=== PATIENT | male | born 1965 | race Two or more races ===

== ENCOUNTER 2020-04-11 09:12 | Emergency (ER) | payer SELFPAY ==
[2020-04-11] MEDS ORDERED: CLINDAMYCIN 900 MG/D5W RTU 900 MG/50 ML RTUPB IV ONE (11:45)
[2020-04-11] MEDS ORDERED: NORMAL SALINE 1000 ML 1,000 ML IV ONE (11:49)
[2020-04-11 12:35] LABS: ABSOLUTE BASOPHILS # (AUTO) 0.1 10^3/uL (0.0-0.2); ABSOLUTE EOSINOPHILS # (AUTO) 0.4 10^3/uL (0.0-0.6); ABSOLUTE LYMPHOCYTES (AUTO) 1.8 10^3/uL (0.5-4.7); ABSOLUTE MONOCYTES (AUTO) 0.5 10^3/uL (0.1-1.4); ABSOLUTE NEUT (AUTO) 7.3 10^3/uL (1.7-8.2); BASOPHILS % (AUTO) 0.6 % (0-2); EOSINOPHILS % (AUTO) 4.2 % (0-6); HEMOGLOBIN 13.8 g/dL (13.5-17.0); LYMPHOCYTES % (AUTO) 18.1 % (13-45); MEAN CORPUSCULAR HEMOGLOBIN 31.5 pg (27.0-33.4); MEAN CORPUSCULAR HGB CONC 34.5 g/dL (32.0-36.0); MEAN CORPUSCULAR VOLUME 91 fl (80-97); MONOCYTES % (AUTO) 5.4 % (3-13); PLATELET COUNT 346 10^3/uL (150-450); RED BLOOD COUNT 4.39 10^6/uL (4.35-5.55); RED CELL DISTRIBUTION WIDTH 12.7 % (11.5-14.0); SEGMENTED NEUTROPHILS % (AUTO) 71.7 % (42-78); TOTAL CELLS COUNTED % (AUTO) 100 %; WHITE BLOOD COUNT 10.2 10^3/uL (4.0-10.5)
--- NOTE | 2020-04-11 12:40 | ER Document Report ---
Entered by FILIPPO PERRY SCRIBE 04/11/20 1145 Acting as scribe for:DAHIANA PENA MD ED Extremity Problem, Lower - General Chief Complaint: Wound Infection Stated Complaint: LEFT KNEE PAIN/OPEN SORE Time Seen by Provider: 04/11/20 11:26 Mode of Arrival: Ambulatory Information source: Patient Notes: This 55 year old Welsh speaking male patient presents to the emergency department today with complaints of an abscess to the left knee. Patient states that he was bitten or stung by an unknown insect 2 days ago, the area began to swell and sounds like it came to a head and began draining pus. The area has remained red and painful but it is not actively draining. - Related Data Allergies/Adverse Reactions: No Known Allergies Allergy (Unverified 04/11/20 12:20) Past Medical History - General Information source: Patient - Social History Smoking Status: Unknown if Ever Smoked Cigarette use (# per day): No Frequency of alcohol use: None Drug Abuse: None Lives with: Family Family History: Reviewed & Not Pertinent Patient has homicidal ideation: No - Medical History Medical History: Negative Surgical Hx: Negative Review of Systems - Review of Systems Constitutional: No symptoms reported EENT: No symptoms reported Cardiovascular: No symptoms reported Respiratory: No symptoms reported Gastrointestinal: No symptoms reported Genitourinary: No symptoms reported Male Genitourinary: No symptoms reported Musculoskeletal: No symptoms reported Skin: See HPI, Change in color, Lesions - left knee Hematologic/Lymphatic: No symptoms reported Neurological/Psychological: No symptoms reported -: Yes All other systems reviewed and negative Physical Exam - Vital signs Vitals: Temp Pulse Resp BP Pulse Ox 98.4 F 73 16 154/79 H 99 04/11/20 09:17 04/11/20 09:17 04/11/20 09:17 04/11/20 09:17 04/11/20 09:17 - Notes Notes: Physical Exam: General: Alert, appears well. HEENT: Normocephalic. Atraumatic. PERRL. Extraocular movements intact. Oropharynx clear. Neck: Supple. Non-tender. Respiratory: No respiratory distress. Clear and equal breath sounds bilaterally. Cardiovascular: Regular rate and rhythm. Abdominal: Normal Inspection. Non-tender. No distension. Normal Bowel Sounds. Back: No gross abnormalities. Extremities: Moves all four extremities. Upper extremities: Normal inspection. Normal ROM. Lower extremities: The left anterior lateral knee area is swollen, erythema, skin is blistering away from a central necrotic area. The entire cellulitic region is very tender to palpate. Palpation on the wound causes liquid to flow out of one of the necrotic openings. Neurological: Normal cognition. AAOx4. Normal speech. Psychological: Normal affect. Normal Mood. Skin: Warm. Dry. Normal color. Course - Re-evaluation Re-evalutation: 04/11/20 18:04 PROCEDURE: The right anterolateral knee region was prepped with Shur-Clens. The abscess area was anesthetized with 12 mL of 1% lidocaine local. The primary wound was incised with a #11 scalpel. There was a communicating wound about 1 cm proximal to the main wound. The abscess was probed with a mosquito forceps. It travels in a lateral direction. It does not progress toward the patella, the prepatellar bursa, or the knee joint. The bridging tissue between the incised area and the other opening split open during debridement and irrigating the wound. Necrotic tissue within the wound was debrided. The blistering skin around the wound was peeled away. The wound was irrigated with at least 100 mL of normal saline. Wound was then packed with 1/4 inch iodoform gauze and a sterile dressing was applied. I got Dr. Eugene to come look at the patient's wound before packing it as he would be here tomorrow and can see the patient in follow-up. 04/11/20 18:08 The knee immobilizer was placed by the PCT, it fits well and prevents the patient from bending his knee. - Vital Signs Vital signs: Temp Pulse Resp BP Pulse Ox 98.4 F 63 18 114/68 100 04/11/20 16:12 04/11/20 16:12 04/11/20 16:12 04/11/20 16:12 04/11/20 16:12 - Laboratory Result Diagrams: 04/11/20 12:20 04/11/20 12:20 - Diagnostic Test Radiology reviewed: Reports reviewed - Contrasted CT scan of the left knee shows stranding of the soft tissues without involvement of the knee joint or with discrete drainable collections. Discharge - Discharge Clinical Impression: Abscess of knee, left Condition: Stable Disposition: HOME, SELF-CARE Additional Instructions: Abscess You have an abscess (boil). This a pus-forming infection, usually due to staph. Some boils may be left to drain on their own, but most require lancing. From the time the tender lump first appears, it may be three or four days before the abscess is ready to gunner. Local heat and rest help at this stage of treatment. An antibiotic may prevent spread of the infection. Once the abscess is opened, packing may be placed into it. This is done so pus is not sealed inside by premature closure of the cavity. The packing will be removed at your follow-up visit or you may be advised to remove it yourself at home. Sometimes this packing must be replaced a few times during healing. The wound will heal with surprisingly little scar. Depending on the size and location of an abscess, healing can take one to four weeks. You may shower and wash the area around the incision site two or three times a day. Antibiotics may be prescribed, but are usually not necessary after an abscess has been drained. If you develop fever, chilling, worsening pain, or increasing swelling in the area, call the doctor or return immediately. Use the knee immobilizer to prevent your knee from bending. Elevate your leg all the time. Take the medications as prescribed. Return to the emergency room tomorrow before noon to see Dr. Eugene to recheck your wound. RETURN TO THE EMERGENCY ROOM IF ANY NEW OR WORSENING SYMPTOMS. Prescriptions: Doxycycline Hyclate 100 mg PO BID #10 tab Oxycodone HCl/Acetaminophen [Percocet 5-325 mg Tablet] 1 tab PO ASDIR PRN #12 tablet PRN Reason: I personally performed the services described in the documentation, reviewed and edited the documentation which was dictated to the scribe in my presence, and it accurately records my words and actions.
[2020-04-11 12:57] LABS: ALKALINE PHOSPHATASE 119 U/L (38-126); ANION GAP 11 (5-19); ASPARTATE AMINO TRANSFERASE 30 U/L (17-59); BILIRUBIN,DIRECT 0.4 mg/dL (0.0-0.4); BILIRUBIN,TOTAL 0.5 mg/dL (0.2-1.3); BLOOD UREA NITROGEN 16 mg/dL (7-20); CALCIUM 9.4 mg/dL (8.4-10.2); CARBON DIOXIDE 29 mmol/L (22-30); CHLORIDE 101 mmol/L (98-107); GLUCOSE 100 mg/dL (75-110); POTASSIUM 4.7 mmol/L (3.6-5.0); TOTAL PROTEIN 7.4 g/dL (6.3-8.2)
--- NOTE | 2020-04-11 13:54 | RADIOLOGY REPORT (SQ) ---
EXAM DESCRIPTION: CT LEFT LOWER EXTREMITY WITH IMAGES COMPLETED DATE/TIME: 04/11/2020 12:29 pm REASON FOR STUDY: knee abscess COMPARISON: None. TECHNIQUE: Enhanced axial CT images of the left knee. CONTRAST TYPE AND DOSE: 50 mL Omnipaque 350 RENAL FUNCTION: GFR > 60. LIMITATIONS: None. FINDINGS: Bones: There is no acute fracture or cortical disruption. Moderate osteophytes at the me dial compartment. Mild osteophytes at the lateral compartment and patellofemoral joint space. No ly tic or blastic bone lesion. Soft tissues: There is no knee joint effusion. Diffuse subcutaneous edema overlying the patella and quadriceps tendon consistent with prepatellar bursitis. Other: None. IMPRESSION: Prepatellar bursitis. No focal drainable abscess. TECHNICAL DOCUMENTATION: JOB ID: [id number] [employer]- All Rights Reserved Reading location - IP/workstation name: [email or web address]
[2020-04-11] MEDS ORDERED: LIDOCAINE 1% INJ-PF (10 MG/ML) 30 ML SDV INJ ONE (14:01)
[2020-04-11] MEDS ORDERED: ONDANSETRON HCL INJ/PF 4 MG/2 ML SDV IV ONE (14:02)
[2020-04-11] MEDS ORDERED: MORPHINE SULFATE 10 MG/ML INJ IV ONE (14:02)
[2020-04-11 16:13] VITALS: BP 114/68
== END 2020-04-11 16:31 | disposition home or self-care (01) ==
LOC: ER 09:12
DX: L02.416 Cutaneous abscess of left lower limb (principal); M70.42 Prepatellar bursitis, left knee
CPT/HCPCS: 99285; 96361; 96375; 96365; 36415; 87040; 87070; 87205; 85025; 87075; 87077; 80053; 87186; 73701; 10060; J3490 ×2; J2270; J2405; J7030

== ENCOUNTER 2020-04-12 11:19 | Emergency (ER) | payer SELFPAY ==
--- NOTE | 2020-04-12 11:35 | ER Document Report ---
ED Medical Screen (RME) - General Chief Complaint: Abscess Recheck Stated Complaint: RECHECK/KNEE ABSCESS Time Seen by Provider: 04/12/20 11:32 Mode of Arrival: Ambulatory Information source: Patient Notes: 55-year-old male presented to ED for wound recheck. He was told by Dr. Eugene to please come back in time for him to recheck him. He was told he needed to be back in the emergency room before noon. He is alert oriented he states there is no change in his wound. He is able to walk with some limp. I have notified the charge nurse that the man is in the waiting room waiting to be rechecked by Dr. Eugene I have greeted and performed a rapid initial assessment of this patient. A comprehensive ED assessment and evaluation of the patient, analysis of test results and completion of medical decision making process will be conducted by an additional ED providers. - Related Data Allergies/Adverse Reactions: No Known Allergies Allergy (Unverified 04/11/20 12:20) Physical Exam - Vital signs Vitals: Temp Pulse Resp BP Pulse Ox 98.3 F 61 18 154/77 H 99 04/12/20 11:24 04/12/20 11:24 04/12/20 11:24 04/12/20 11:24 04/12/20 11:24 Course - Vital Signs Vital signs: Temp Pulse Resp BP Pulse Ox 98.3 F 61 18 154/77 H 99 04/12/20 11:24 04/12/20 11:24 04/12/20 11:24 04/12/20 11:24 04/12/20 11:24
[2020-04-12 12:19] VITALS: BP 154/94
== END 2020-04-12 12:19 | disposition home or self-care (01) ==
LOC: ER 11:19
DX: L02.416 Cutaneous abscess of left lower limb (principal)
CPT/HCPCS: 99281

== ENCOUNTER 2020-04-13 09:20 | Emergency (ER) | payer SELFPAY ==
--- NOTE | 2020-04-13 11:27 | ER Document Report ---
Entered by DENVER ZIMMERMAN SCRIBE 04/13/20 1009 Acting as scribe for:BART ESCALANTE MD ED Suture/Wound Recheck - General Chief Complaint: Wound Recheck Stated Complaint: KNEE PAIN/SORE Mode of Arrival: Ambulatory Information source: Patient Notes: This 55 year old male patient presents to the ED today for packing removal of his left knee abscess that he developed last week. Patient was initially seen here on 04/11 and underwent an I&D which was packed; he returned here on 04/12 for wound recheck which was clean, dry and intact and is now here to remove the packing. Patient denies any pain at this time. - Related Data Allergies/Adverse Reactions: No Known Allergies Allergy (Verified 04/13/20 09:37) Past Medical History - General Information source: Patient - Social History Smoking Status: Unknown if Ever Smoked Smoking Education Provided: No Lives with: Family Family History: Reviewed & Not Pertinent - Medical History Medical History: Negative Surgical Hx: Negative Review of Systems - Review of Systems Constitutional: See HPI EENT: No symptoms reported Cardiovascular: No symptoms reported Respiratory: No symptoms reported Gastrointestinal: No symptoms reported Genitourinary: No symptoms reported Male Genitourinary: No symptoms reported Musculoskeletal: No symptoms reported Skin: See HPI Hematologic/Lymphatic: No symptoms reported Neurological/Psychological: No symptoms reported -: Yes All other systems reviewed and negative Physical Exam - Vital signs Vitals: Temp Pulse Resp BP Pulse Ox 98.2 F 67 16 157/80 H 98 04/13/20 09:26 04/13/20 09:26 04/13/20 09:26 04/13/20 09:26 04/13/20 09:26 Interpretation: Normal - General General appearance: Alert In distress: None - HEENT Head: Normocephalic, Atraumatic Eyes: Normal Pupils: PERRL - Respiratory Respiratory status: No respiratory distress Chest status: Nontender Breath sounds: Normal Chest palpation: Normal - Cardiovascular Rhythm: Regular Heart sounds: Normal auscultation Murmur: No - Abdominal Inspection: Normal Distension: No distension Bowel sounds: Normal Tenderness: Nontender - Abdomen soft Organomegaly: No organomegaly - Back Back: Normal, Nontender - Extremities General upper extremity: Normal inspection Knee: Other - Packing was removed from the cavity created by the I&D on the left anterolateral knee. The wound is clean, moist, and without any malodor or significant drainage.. No: Pain with ROM - Neurological Neuro grossly intact: Yes Orientation: AAOx4 Benita Coma Scale Eye Opening: Spontaneous Benita Coma Scale Verbal: Oriented Benita Coma Scale Motor: Obeys Commands [place] Coma Scale Total: 15 - Psychological Associated symptoms: Normal affect, Normal mood - Skin Skin Temperature: Warm Skin Moisture: Dry Skin Color: Normal Course - Re-evaluation Re-evalutation: 04/13/20 11:15 Patient ambulatory in the emergency department after the wound packing was removed and new bandaging applied with an Jeovany wrap. Patient reports he has no pain with walking. 04/13/20 11:20 Reviewed the culture of the wound site that this shows that there is a staph aureus infection present. And this infection is sensitive to tetracycline. Patient was placed on doxycycline which is a good antibiotic for this bacterial infection. - Vital Signs Vital signs: Temp Pulse Resp BP Pulse Ox 98.2 F 67 16 157/80 H 98 04/13/20 09:26 04/13/20 09:26 04/13/20 09:26 04/13/20 09:26 04/13/20 09:26 04/13/20 11:16 Vital signs stable Procedures - Additional Procedures Post I&D Packing Removal Time performed: 10:04 - Packing removed by me. Wound site shows a crater that has been created due to the abscess. Granulation tissue is present no foul odor no exudate noted. Nurse then irrigated wound closed wound with 4 x 4's and Telfa pad and an Jeovany wrap was applied. Discharge - Discharge Clinical Impression: Abscess of knee, left Condition: Stable Disposition: HOME, SELF-CARE Instructions: Post Incision and Drainage Additional Instructions: Abscess You have an abscess (boil). This a pus-forming infection, usually due to staph. Some boils may be left to drain on their own, but most require lancing. From the time the tender lump first appears, it may be three or four days before the abscess is ready to gunner. Local heat and rest help at this stage of treatment. An antibiotic may prevent spread of the infection. Once the abscess is opened, packing may be placed into it. This is done so pus is not sealed inside by premature closure of the cavity. The packing will be removed at your follow-up visit or you may be advised to remove it yourself at home. Sometimes this packing must be replaced a few times during healing. The wound will heal with surprisingly little scar. Depending on the size and location of an abscess, healing can take one to four weeks. You may shower and wash the area around the incision site two or three times a day. Antibiotics may be prescribed, but are usually not necessary after an abscess has been drained. If you develop fever, chilling, worsening pain, or increasing swelling in the area, call the doctor or return immediately. I am recommending that you follow-up with the [facility]. Telephone number is [phone] Referrals: POLLY NOLASCO MD [ACTIVE STAFF] - Follow up in 3-5 days I personally performed the services described in the documentation, reviewed and edited the documentation which was dictated to the scribe in my presence, and it accurately records my words and actions.
[2020-04-13 11:50] VITALS: BP 156/90
== END 2020-04-13 11:50 | disposition home or self-care (01) ==
LOC: ER 09:20
DX: Z48.01 Encounter for change or removal of surgical wound dressing (principal); L02.416 Cutaneous abscess of left lower limb
CPT/HCPCS: 99281